=== PATIENT | female | born 1960 | race African-American/Black ===

== ENCOUNTER 2019-05-06 07:29 | Emergency (ER) | payer OTHER ==
[~2019-05-06] VITALS: Ht 149.9 cm; Wt 72.6 kg
[~2019-05-06 07:29] MED LIST: FLAGYL500 MG PO; MEDROLDOSEPACK PO; NOHOMEMEDICATIONS; VISTARIL 25 MG25 M1 PO
[2019-05-06] MEDS ORDERED: KEFLEX500 M1 PO (07:35)
[2019-05-06] MEDS ORDERED: ACCUNEB SO1.25 MG/1 INH (07:36)
[2019-05-06] MEDS ORDERED: TRAMADOL 50 MG50 MG PO (08:33)
[2019-05-06] MEDS ORDERED: CLEOCIN HCL150 MG PO (08:33)
[2019-05-06 09:20] VITALS: BP 121/71
== END 2019-05-06 09:20 | disposition home or self-care (01) ==
LOC: ER 07:29
DX: H00.012 Hordeolum externum right lower eyelid (principal); I10 Essential (primary) hypertension; J45.909 Unspecified asthma, uncomplicated; F41.9 Anxiety disorder, unspecified; F31.9 Bipolar disorder, unspecified; M19.90 Unspecified osteoarthritis, unspecified site; G89.29 Other chronic pain; R10.9 Unspecified abdominal pain; Z90.710 Acquired absence of both cervix and uterus; Z98.890 Other specified postprocedural states; Z88.0 Allergy status to penicillin

== ENCOUNTER 2019-08-01 12:13 | Day surgery (SDC) | payer OTHER ==
[~2019-08-01] VITALS: Ht 149.9 cm; Wt 71.7 kg
--- NOTE | ~2019-08-01 | O ---
[facility] [place] [place] [address] OPERATIVE REPORT Name: ALEXANDRA VALDEZ Room #: DEP [facility] M..#: [id number] Admission: 08/01/19 Attend Phys: Major Solis DPM Discharge: 08/01/19 Date of : 62 Report #: [id number] THIS REPORT FOR: //name// CC: Major Garrison DATE OF SERVICE: 08/01/2019 SURGEON: Major Solis DPM. PREOPERATIVE DIAGNOSIS: Hallux interphalangeus, left great toe and hammertoes of the second and third toes, left foot. POSTOPERATIVE DIAGNOSIS: Hallux interphalangeus, left great toe and hammertoes of the second and third toes, left foot. PROCEDURE: Jaime osteotomy, left foot; arthrodesis of the second and third toes, left foot. ANESTHESIA: IV sedation, local nerve block. Hemostasis was applied well-padded ankle tourniquet to the left ankle. Estimated blood loss was minimal. There were no complications during the procedure or the anesthesia. Following is a preoperative course. 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 These have caused her considerable difficulties with shoe gear and she has tried multiple forms of alterations in shoe gear and none have failed to alleviate her pain. She is opting for outpatient surgery at this time to correct these deformities and hopefully improve her quality of life. The patient has reviewed the risks and complications of surgery and signed the preoperative consent form, admitting to understanding. Following is the operative report, the patient was wheeled to the operating room in the usual supine condition, transferred to the operative table, given IV sedation. Once the IV sedation was found to be adequate, local nerve block was given to the left foot. The left foot was then prepped and draped in the usual sterile manner. Upon reentering the operating room, anesthesia was checked and found to be adequate. Esmarch tourniquet was used to exsanguinate the blood from the left foot and ankle tourniquet elevated to 250 mmHg. Linear longitudinal incision was made over the dorsal aspect of the left great toe. This was deepened sharply and bluntly, taking care to cauterize and retract all bleeders. Using a [place] elevator, the bone and periosteum were reflected from the base of the proximal phalanx where a 0.045 K-wire in the form of apical guide was directed in a perpendicular manner to the weightbearing surface. Next, the [facility] [address] [place] [address] OPERATIVE REPORT Name: ALEXANDRA VALDEZ Room #: DEP [facility] MChiqui#: [id number] Admission: 08/01/19 Attend Phys: Major Solis DPM Discharge: 08/01/19 Date of : 62 Report #: [id number] osteotomy cuts were made with the apex of the cut being proximal lateral and the base distal medial. A wedge of bone was removed and the osteotomy closed upon itself correcting the hallux in the rectus position. Next, a cannulated wire from the Integra screw set was used to temporarily fixate and evaluated on C-arm to notice a length of screw needed for the osteotomy closure and compression. There was found to be good placement of the wire and a subsequent cannulated screw. The wire was measured for the appropriate length of screw, which measured to be 18 mm, one 18 mm 2.4 Crockett screw was used over the top of the cannulated wire and tightened upon end range of motion to allow adequate compression at the surgery site. The wire was removed and upon x-ray C-arm reviewing the osteotomy was adequately closed and in good anatomical position. The wound was copiously flushed with sterile saline and capsular closure performed with a 4-0 Vicryl suture as well as subcutaneous closure and skin closure with 4-0 nylon suture in a running continuous fashion. Next, attention was directed to the second toe where a transverse incision was made over the proximal interphalangeal joint. This was deepened sharply and bluntly, taking care to cauterize and retract all bleeders. Adequate portion of the distal aspect of the proximal phalangeal cartilage was removed as well as the base of the middle phalangeal cartilage. A cannulated wire from the Integra screw set was used and retrograded out the distal aspect of the second toe and then placed retrograded back into the proximal phalanx of the second toe. C-arm radiography confirmed good position of the wire, length of screw needed was measured to be approximately 36 mm. A 2.036 mm Integra screw was placed over the wire after the site was drilled and went without any complications. The exact same procedure was performed for the second was performed to the third and reviewing upon C-arm radiography confirmed good anatomical position and placement of the hardware. Hemostasis was maintained using the cautery unit. After the tourniquet was deflated. Cap refill immediately returned to all digits on the left foot. Closure of the toes was performed with a 4-0 nylon suture in simple interrupted fashion. A sterile dressing was placed on the left foot. The patient tolerated the procedure well and left the operating room in stable condition. She was placed on oxycodone 10 mg and Xanax 2 mg for anxiety and postoperative pain management. She was also prophylaxed with 2 grams of Ancef preoperatively through her IV. The patient will be allowed to ambulate as tolerated in the postoperative shoe. She will follow up in about 3-4 days for postoperative wound management. By: [id number] Major Solis, CINDY /nt
[~2019-08-01 12:13] MED LIST changes: +ACCUNEB SO1.25 MG/1 INH; +ALPRAZOLAM 0.50.5 M1 PO; +CLEOCIN HCL150 MG PO; +HYDROXYZINE HCL50 MG PO; +KEFLEX500 M1 PO; +LOSARTAN-HCTZ1 EACH PO; +PROZAC 20 MG20 MG PO; +TRAMADOL 50 MG50 MG PO; +ZOLPIDEM TARTRA10 MG PO
[2019-08-01 12:43] VITALS: BP 141/77
[2019-08-01 13:07] LABS: CALCIUM 9.3 mg/dL (8.5-10.1); CREATININE 1.2 mg/dL (0.6-1.0); POTASSIUM 3.8 mmol/L (3.5-5.1)
--- NOTE | 2019-08-01 15:22 | EKG ---
[address] [address] ELECTROCARDIOGRAM REPORT Name: FELECIA VALDEZT Room #: 150-9 [facility]..#: [id number] Admission: 08/01/19 Attend Phys: Major Solis DPM Discharge: Date of : 62 Report #: [id number] THIS REPORT FOR: //name// [facility] Test Date: 2019-08-01 Test Time: 12:35:09 Pat Name: ALEXANDRA VALDEZ Department: Room: 150 9 Gender: F Cloth Shearer: MARCUS : 1960 Requested By: Major Solis Order Number: [id number] MD: Govind Neves Measurements Intervals [place] Rate: 69 P: 45 AL: 131 QRS: 37 QRSD: 75 T: 61 QT: 425 QTc: 456 Interpretive Statements Sinus rhythm Probable left atrial enlargement Probable left ventricular hypertrophy No previous ECG available for comparison Electronically Signed On 08-01-2019 15:22:02 [employer] GLASS EYE [employer]KER by Govind Neves [email or web address] <ELECTRONICALLY SIGNED> By: Govind Neves MD 08/01/19 1522 1235 1235 Govind Neves MD /MALLIKA
== END 2019-08-01 16:40 | disposition home or self-care (01) ==
LOC: OR 12:13 → TBA 12:14 → OR 13:04
PROVIDERS: Podiatrist
DX: M20.12 Hallux valgus (acquired), left foot (principal); M20.42 Other hammer toe(s) (acquired), left foot; I10 Essential (primary) hypertension; J43.9 Emphysema, unspecified; F31.9 Bipolar disorder, unspecified; F41.9 Anxiety disorder, unspecified; M19.90 Unspecified osteoarthritis, unspecified site; Z98.890 Other specified postprocedural states; Z79.899 Other long term (current) drug therapy; Z90.710 Acquired absence of both cervix and uterus; Z87.891 Personal history of nicotine dependence; Z88.0 Allergy status to penicillin
CPT/HCPCS: 50010; 50101; 50386; 55430; 56526; 56871; 57091; 57178; 62110; 62850; 70005

== ENCOUNTER 2019-10-13 18:43 | Inpatient (IN) | payer OTHER ==
[~2019-10-13] VITALS: Ht 149.9 cm; Wt 75.7 kg
--- NOTE | ~2019-10-13 | O ---
[facility] [place] [place] [address] OPERATIVE REPORT Name: ALEXANDRA VALDEZ Room #: 448-P [facility] IN M.R.#: [id number] Admission: 10/13/19 Attend Phys: Eliot Saunders MD Discharge: 10/18/19 Date of : 62 Report #: [id number] THIS REPORT FOR: cc: FLORINA - No family physician/PCP FAM - No family physician/PCP Major Solis DPM ~ CC: [facility] physician/PCP Eliot Saunders DATE OF SERVICE: 10/18/2019 SURGEON: Major Solis DPM PREOPERATIVE DIAGNOSIS: Complications due to hardware, second digit, left foot. POSTOPERATIVE DIAGNOSIS: Complications due to hardware, second digit, left foot. PROCEDURE: Removal of hardware from the second digit, left foot. ANESTHESIA: IV sedation, local nerve block. Hemostasis was not needed. Estimated blood loss: Less than 1 mL. There were no complications during the procedure or the anesthesia. PREOPERATIVE COURSE: The patient had a bunion and hammertoe repair performed a couple of months ago, which was well until just last week when the screw from the second toe became evident and painful to the patient. The patient reported to the Emergency Room in [facility] on evening. I was contacted and saw her on Thursday, looked at the x-rays, which did not show any osteomyelitis or any immediate concern. The patient was already on vancomycin infused IV. Decision was made to have the hardware removed on Thursday when a time was available. In the meantime, she will be monitored in the hospital and was given a pain management and antibiosis. The patient understood the risks and complications of surgery as well as technical aspects of the surgery. The patient signed a preoperative consent form, admitting to understanding. DESCRIPTION OF PROCEDURE: The patient was wheeled to the operating room in usual supine condition, transferred to the operating table, given IV sedation. Once IV sedation was found to be adequate, local nerve block was given to the left second toe and upon re-entering the operating room, anesthesia was found to be adequate. The screw head was evidenced out of the dorsal aspect of the distal second toe. This was grasped using a hemostat and easily removed using a [facility] [address] [address] OPERATIVE REPORT Name: ALEXANDRA VALDEZ Room #: 448-P [facility] IN M.R.#: [id number] Admission: 10/13/19 Attend Phys: Eliot Saunders MD Discharge: 10/18/19 Date of : 62 Report #: [id number] counter clockwise motion of the screw. There were no signs of infection, no purulence and no necrosis of the tissue. A sterile bandage was used to cover the second toe. She was returned to the floor and will be given oral antibiosis upon discharge as well as oxycodone 10 mg for pain management for the next 4-5 days. She will report to the office in about 3 days for postoperative wound management. She will ambulate as tolerated in a postoperative shoe. There were no complications during the procedure or the anesthesia. By: [id number] Major Solis, CINDY /nt
[2019-10-13 18:45] VITALS: BP 127/85
--- NOTE | 2019-10-13 21:19 | NUR ---
IV TEAM AT BEDSIDE, ATTEMPTING AN IV AND DRAWING LABS
[2019-10-13 22:01] LABS: ABSOLUTE NEUTROPHILS 4.4 thou/uL (1.4-8.2); BASOPHILS 1.1 % (0.0-2.0); EOSINOPHILS 12.8 % (0.0-3.0); HEMATOCRIT 36.4 % (37.0-47.0); HEMOGLOBIN 11.2 gm/dL (12.0-15.0); LYMPHOCYTES 25.9 % (24.0-44.0); MCH 23.3 pg (26.0-34.0); MCHC 30.7 g/dL (28.0-37.0); MONOCYTES 6.9 % (1.0-8.0); PLATELET COUNT 269 thou/uL (150-400); POLYS 53.3 % (36.0-66.0); RBC 4.79 mil/uL (4.20-5.00); RDW 15.5 % (10.5-14.5); WBC 8.2 thou/uL (4.0-11.0)
[2019-10-13 22:09] LABS: CALCIUM 9.2 mg/dL (8.5-10.1); CREATININE 1.2 mg/dL (0.6-1.0)
[2019-10-13 22:22] LABS: ALBUMIN 3.7 g/dL (3.4-5.0); TOTAL BILIRUBIN 0.2 mg/dL (<0.1-1.0); TOTAL PROTEIN 7.2 g/dL (6.4-8.2)
[2019-10-14 01:00] VITALS: BP 111/56
[2019-10-14 06:18] VITALS: BP 107/67
[2019-10-14 07:04] VITALS: BP 109/65
[2019-10-14 07:59] LABS: HEMATOCRIT 38.4 % (37.0-47.0); HEMOGLOBIN 11.7 gm/dL (12.0-15.0); MCH 23.3 pg (26.0-34.0); MCHC 30.5 g/dL (28.0-37.0); MCV 76.4 fL (80.0-100.0); PLATELET COUNT 295 thou/uL (150-400); RBC 5.03 mil/uL (4.20-5.00); RDW 15.3 % (10.5-14.5); WBC 6.2 thou/uL (4.0-11.0)
[2019-10-14 08:04] LABS: CALCIUM 8.5 mg/dL (8.5-10.1); CREATININE 1.3 mg/dL (0.6-1.0); MAGNESIUM 2.3 mg/dL (1.8-2.4); POTASSIUM 4.3 mmol/L (3.5-5.1)
[2019-10-14 08:45] LABS: PLATELET ESTIMATE NORMAL
[2019-10-14 10:31] VITALS: BP 106/60
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
--- NOTE | 2019-10-14 18:45 | NUR ---
ASSUMED CARE OF THE PT AT 1330. PT WANTS PAIN MEDS CONSTANTLY, EXPLAINED TO PT THAT PAIN MEDS CAN ONLY BE GIVEN ON SCHEDULE. PT IS NO LONGER NPO PER BEVERAGE SPECIALIST. PT PULLED OUT IV AND NEW IV PLACED. C/O PAIN, CONSTANTLY. PT TO HAVE SX SCHEDULED FOR POSSIBLE THURSDAY. PT IS NOT A FALL RISK. BED IN LOWEST POSITION AND CALL LIGHT IS WITHIN REACH. WILL CONTINUE TO MONITOR THE PT.
[2019-10-14 19:55] VITALS: BP 102/65
[2019-10-15] VITALS (11 sets, daily range): BP systolic 83–130; BP diastolic 50–108
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
--- NOTE | 2019-10-15 16:05 | NUR ---
ASSUMED CARE PT SHIFT CHANGE. ASSESSMENT CHARTED. MEDS GIVEN PER OCT. PT ALERT AND ORIENTED. ANXIOUS AT TIMES-MANAGED WITH ALPRAZOLAM PO. C/O PAIN IN FOOT- MANAGED WITH IV AND PO PAIN MEDS. O2 SATS WNL ON ROOM AIR. DENIES SOB/CP. PT AWAITING PROCEDURE ON FOOT SCHDULED FOR THIS WEEK. PT CURRENTLY RESTING IN BED, DENYING OF NEEDS/ CONCERNS. WILL CONT TO MONITOR AND FOLLOW POC.
--- NOTE | 2019-10-15 20:10 | NUR ---
1910 ASSUMED CARE OF PT AFTER BEDSIDE REPORT. 1999 ASSESSMENT COMPLETED, PIN STICKING OUT OF LEFT SECOND TOE TIP, NO DRAINAGE, SENSITIVE TO TOUCH, TO WARM WITH BRISK CAPILLARY REFILL, PT IS AWAL AND ORIENTED X 4 STATES NOT ALLERGIC TO LATEX, ONLY GETS SLIGHT IRRITATION WITH SOME SORT OF TAPE ADHESIVE THAT SHE CANT REMEMBER. WILL CONTINUE WITH HOURLY ROUNDING PT UP AD HARSHA TO BATHROOM
[2019-10-16 04:40] VITALS: BP 113/90
[2019-10-16 06:06] LABS: HEMATOCRIT 33.6 % (37.0-47.0); HEMOGLOBIN 10.1 gm/dL (12.0-15.0); MCH 23.2 pg (26.0-34.0); MCHC 30.1 g/dL (28.0-37.0); MCV 76.9 fL (80.0-100.0); RBC 4.37 mil/uL (4.20-5.00); RDW 15.8 % (10.5-14.5); WBC 7.4 thou/uL (4.0-11.0)
[2019-10-16 06:15] LABS: CALCIUM 8.8 mg/dL (8.5-10.1); CREATININE 1.3 mg/dL (0.6-1.0); POTASSIUM 4.8 mmol/L (3.5-5.1)
[2019-10-16 08:50] VITALS: BP 91/49
--- NOTE | 2019-10-16 15:29 | NUR ---
VSS-AFEBRILE. RESTLESS THROUGH DAY, OCCASIONALLY RAMBLES AND IS DIFFICULT TO TRACK. COOPERATIVE AND PLEASANT. C/O LEFT FOOT PAIN THAT IS NOT WELL RELIEVED WITH IV AND PO PAIN MEDICATIONS. LARGE BM, C/O POSSIBLE HEMMORHOID. OOB AD HARSHA-STEADY ON FEET. GOOD APPETITE, NO REPORTED N/V. CALLS APPROPRIATELY FOR ANY NEEDED ASSISTANCE.
[2019-10-16 19:45] VITALS: BP 119/81
--- NOTE | 2019-10-17 05:00 | NUR ---
ASSUMED PT CARE AT 1900. PT REQUESTING PAIN MEDS FREQUENTLY, REPORTING PAIN 9/10 IN FOOT. UPON ENTERING THE ROOM, PT WAS FOUND FRANTICALLY REMOVING THE BED LINEN AND GOWN. STATED HER IV GOT CAUGHT ON SOMETHIGN AND RIPPED OUT. ASSISTED THE PT WITH REDRESSING, NEW IV PLACED. FLUIDS INFUSING PER ORDER. UP AD HARSHA IN ROOM AND HALLWAYS. SLEPT SECOND HALF OF SHIFT AND REQUESTED STAFF "LEAVE HER ALONE" FOR AWHILE. WILL CONTINUE TO MONITOR.
[2019-10-17 08:39] VITALS: BP 128/80
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
[2019-10-17 15:58] VITALS: BP 93/81
[2019-10-17 19:58] VITALS: BP 123/73
--- NOTE | 2019-10-17 20:44 | NUR ---
ASSUMED CARE OF THE PT AT 0700. PT IS AMBULATORY. PT WILL BE NPO AT MIDNIGHT. SX SCHEDULED FOR 9AM. NO CONSENTS SIGNED, PT DID NOT UNDERSTAND THE PROCEDURE. PT BECAME IMPULSIVE AND BEGAN TO CRY. PAIN MEDS CONTROLLED PAIN, SEE EMAR. CALL LIGHT WITHIN REACH, BED IN LOWEST POSITION. REPORT GAVE TO NOC NURSE.
--- NOTE | 2019-10-18 04:24 | NUR ---
ASSESSED AT START OF SHIFT PT A&OX4. C/O PAIN IN LFT TOE. PAIN AND ANXIETY MEDS GIVENX1 THIS SHIFT. BENADRYL GIVEN FOR ITCHING. PT DTR BROUGHT PT BELONGINGS FOR HER. MEDS COLLECTED AND SENT TO PHARMACY. IV INTACT AND FLUIDS INFUISING. PT NPO AT MIDNIGHT FOR SX IN THE AM. PT SHOWERED THIS SHIT. CALL LIGHT IN REACH AND PT SLEPT THE REST OF SHIFT. WILL CONT WITH POC TILL EOS. SCD'S IN PLACE.
[2019-10-18 04:49] VITALS: BP 112/65
[2019-10-18 07:50] VITALS: BP 127/64
[2019-10-18 11:00] VITALS: BP 120/77
--- NOTE | 2019-10-18 11:15 | NUR ---
PT CARE ASSUMED AT 0700. A&Ox4. PT WENT TO PIN REMOVAL AT 0800. AND RETURNED AT 1045. POST OP VITALS STABLE. DISCHARGE ORDERS AND SCHRIPT ON CHART FROM DR. MCGUIRE PERFORMING SURGEON. HOME MEDS ARE STORED IN INPATIENT PHARMACY. PT IS TO DISCHARGE BACK TO EITHER [facility] OR [facility]. WE CAN PROVIDE A CAB VOUCHER IF NEEDED. IV IS PATENT WITH NO REDNESS OR EDEMA. LATEX ALLERGY. WALKING BOOT IN ROOM THAT PT IS TO DISCHARGE WITH. CALL LIGHT IN REACH. WILL CONTINUE TO MONITOR. IV ANTIBIOTICS INFUSING. PAIN MEDICATION GIVEN.
[2019-10-18] MEDS ORDERED: CLEOCIN HCL150 M1 PO (11:58)
[2019-10-18 12:57] VITALS: BP 120/77
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
== END 2019-10-18 15:07 | disposition home or self-care (01) | DRG 496 ==
LOC: ER 18:43 → 4S 22:31 → EROBS 22:31 → 4S 10-14 07:25 → ENTRNSPT 10-18 13:46 → 4S 10-18 15:07
PROVIDERS: Emergency Medicine; Nurse Practitioner; ADMIT Hospitalist
PROC: 0QPR04Z Removal of Internal Fixation Device from Left Toe Phalanx, Open Approach (ICD-10-PCS; principal; 2019-10-18)
DX: T84.293A Other mechanical complication of internal fixation device of bones of foot and toes, initial encounter (principal); N17.9 Acute kidney failure, unspecified; L03.032 Cellulitis of left toe; F31.9 Bipolar disorder, unspecified; I10 Essential (primary) hypertension; M19.90 Unspecified osteoarthritis, unspecified site; F17.210 Nicotine dependence, cigarettes, uncomplicated; F41.9 Anxiety disorder, unspecified; J44.9 Chronic obstructive pulmonary disease, unspecified; Z88.5 Allergy status to narcotic agent; Z88.0 Allergy status to penicillin; Z90.710 Acquired absence of both cervix and uterus; Z79.899 Other long term (current) drug therapy; Z91.048 Other nonmedicinal substance allergy status; Z98.1 Arthrodesis status
CPT/HCPCS: 10102; 50010; 50101; 50386; 57091; 62110; 62900; 70005

== ENCOUNTER 2020-04-05 01:39 | Emergency (ER) | payer OTHER ==
[~2020-04-05] VITALS: Ht 149.9 cm; Wt 77.1 kg
[~2020-04-05 01:39] MED LIST changes: +CLEOCIN HCL150 M1 PO
[2020-04-05 04:38] VITALS: BP 147/87
== END 2020-04-05 04:40 | disposition home or self-care (01) ==
LOC: ER 01:39
DX: M79.671 Pain in right foot (principal); M79.672 Pain in left foot; M54.5 Low back pain; I10 Essential (primary) hypertension; M19.90 Unspecified osteoarthritis, unspecified site; F31.9 Bipolar disorder, unspecified; F41.9 Anxiety disorder, unspecified; J44.9 Chronic obstructive pulmonary disease, unspecified; Z88.5 Allergy status to narcotic agent; Z88.8 Allergy status to other drugs, medicaments and biological substances; Z90.711 Acquired absence of uterus with remaining cervical stump; Z98.890 Other specified postprocedural states; Z79.2 Long term (current) use of antibiotics; Z79.899 Other long term (current) drug therapy; Z91.048 Other nonmedicinal substance allergy status; Z88.0 Allergy status to penicillin; W10.8XXA Fall (on) (from) other stairs and steps, initial encounter; Y93.89 Activity, other specified; Y92.89 Other specified places as the place of occurrence of the external cause; Y99.8 Other external cause status